=== PATIENT | female | born 1980 | race Caucasian/White ===

== ENCOUNTER 2017-03-01 13:14 | Emergency (ER) | payer OTHER ==
[2017-03-01 13:52] VITALS: BP 131/67; PULSE 82
--- NOTE | 2017-03-01 13:53 | PD ---
HPI Date Seen: Mar 01, 2017 Time Seen: 13:52 (Susan Abraham MD R1) Travel History International Travel<30 Days: No Contact w/Intl Traveler<30Days: No Known Affected Area: No (Susan Abraham MD R1) History of Present Illness HPI Patient is a 36 year old at 24 and 2/7 weeks gestation by, AMADO 06/19, who presents to the OB ED with upper abdominal pain and headache. She had blurry vision when she woke up this morning which resolved after 2 minutes, associated with finger tingling. She denies leakage of fluid, vaginal bleeding, and contractions. She feels baby moving regularly. She denies MG/N/V/D/fever/sick contacts/SOB/calf pain/dizziness/seeing spots. OB care is with Monalisa Puckett , and carousel operator who practices in [place]. The patient lives in [place] but works at a [employer] in [place]; she travels by car every day. She had [employer] for dinner last night. Para: 0 : 1 (Susan Abraham MD R1) History Past Medical History Narrative Medical Scoliosisstatus post spinal fusion 1987 Gallstones - cholecystectomy September 2015 Medical History: Denies Significant Hx (Susan Abraham MD R1) Obstetric History Obstetric History G1: Current , treated for multiple yeast infections in first trimester Normal first trimester one-hour GTT per patient report HEAD OF BIOLOGY history: Reports having had 2 colposcopies and a LEEP procedure in her early 20s due to abnormal Pap, reportedly normal Pap tests since (Susan Abraham MD R1) Past Surgical History Narrative Surgical Spinal fusion 1987 Cholecystectomy 2015 Colposcopy 2 LEEP Surgical History: No Previous Surgery (Susan Abraham MD R1) Family History Narrative Family History Mother with hypertension Family History: Negative (Susan Abraham MD) Social History Alcohol Use: Yes (first trimester exposure x 09/24/19) Tobacco Use: No Substance Abuse: No (Susan Abraham MD R1) Allergies-Medications (Allergen,Severity, Reaction): Coded Allergies: Codeine (Verified Allergy, Unknown, Psychosis, 03/01/17) Comments Allergy to codeine - patient states she "went crazy"postoperatively after taking it (Susan Abraham MD R1) Narrative Medication PNV Tylenol when necessary (Susna Abraham MD R1) Review of Systems Except as stated in HPI: all other systems reviewed are Neg (Susan Abraham MD R1) Physical Exam Narrative GENERAL: Well-nourished, well-developed female in no apparent distress SKIN: Warm and dry. No rashes, bruises, or lesions HEAD: Normocephalic and atraumatic. EYES: No scleral icterus. No injection or drainage. ENT: No nasal drainage noted. Mucous membranes pink. Airway patent. The tongue is normal in size, lacking erythema or nodules. Throat is patent. NECK: Supple, trachea midline. No JVD. CARDIOVASCULAR: Regular rate and rhythm without murmurs, gallops, or rubs. RESPIRATORY: Breath sounds equal bilaterally. No accessory muscle use. ABDOMEN/GI: Abdomen soft, obese, epigastric tenderness mild, bowel sounds present, no rebound, no guarding GENITOURINARY: External Genitalia: intact and normal in appearance Cervix: Deferred Membranes: No evidence of rupture Uterine Contractions: Absent Urine on visual inspection is dark FHT's: Category:1 Baseline: 150 Reactive: y to 160 Variability: mod Decels: absent EXTREMITIES: No cyanosis or edema. BACK: Nontender without obvious deformity. No CVA tenderness. NEUROLOGICAL: Awake and alert. Motor and sensory grossly within normal limits. Five out of 5 muscle strength in all muscle groups. Normal speech. (Susan Abraham MD R1) Vital Signs Date Time Temp Pulse Resp B/P Pulse Ox O2 Delivery O2 Flow Rate FiO2 03/01/17 14:46 81 129/72 03/01/17 14:31 79 133/66 03/01/17 14:19 74 127/68 03/01/17 13:52 82 131/67 Narrative NAD ABd soft NTND. epigastric region where burning was earlier Normal LE, trace edema, NT. +1 to+2 DTR, no clonus. (Marilee Ferris MD) Data Data Vital Signs Reviewed: Yes (serial BPs: 127/73, 131/67, 127/68, 133/68. Serial pulse: 91, 82, 74, 79) (Susan Abraham MD R1) Vital Signs Reviewed: Yes (Marilee Ferris MD) MDM Medical Record Reviewed: Yes Narrative Course / MDM 36 year old who presents with abdominal pain and headache, now improved Intrauterine : Category 1 tracing No contractions on monitor Headache, Abdominal pain: Exam is unremarkable Vital signs within normal limits on serial monitoring Tylenol by mouth 1 Patient possibly has dehydration and GERD Symptoms have improved Patient is instructed to follow-up with her OB provider in the next 1-[address] Ferris (Susan Abraham MD R1) Interpretation(s) Urine dark - c/w dehydration Attending Attestation 36 yo @ 24w2d with care in [place]. Patient presented with reports of a GM yesterday which resolved with Tylenol. Mild MG at this time. She had a "moment" of dizziness this am for 1-2 min which resolved. Earlier today on her way to work she noted some epigastric "burning" which resolved and wanted to get checked out. She has not hx of HTN. Uncomplicated . Serial BPs normal. Normal exam No s/s pre-eclampsia Tylenol given and oral fluids. TUMS for reflux/GERD Increase oral fluids f/u with her Leaflet Or Newspaper Deliverer tomorrow. Patient agrees with plan of care. (Marilee Ferris MD) Diagnosis Diagnosis: Primary Impression: with 24 completed weeks gestation Additional Impressions: Headache Dehydration Heartburn during in second trimester Disposition: 01 DISCHARGE HOME Condition: Stable Patient Instructions: Abdominal Pain in (ED), Early Labor Signs (ED) , General Instructions Susan Abraham MD R1 Mar 01, 2017 13:53 Marilee Ferris MD Mar 01, 2017 15:38 Decels: [-] EXTREMITIES: No cyanosis or edema. BACK: Nontender without obvious deformity. No CVA tenderness. NEUROLOGICAL: Awake and alert. Motor and sensory grossly within normal limits. Five out of 5 muscle strength in all muscle groups. Normal speech. MDM Medical Record Reviewed: Yes Narrative Course / MDM 36 year old who presents for labor check Category 1 tracing Susan Abraham MD R1 Mar 01, 2017 13:53 Susan Abraham MD R1 Mar 01, 2017 13:53
[2017-03-01 14:19] VITALS: BP 127/68; PULSE 74
[2017-03-01 14:31] VITALS: BP 133/66; PULSE 79
[2017-03-01 14:46] VITALS: BP 129/72; PULSE 81
[2017-03-01] MEDS ORDERED: ACETAMINOPHEN 325 MG TAB PO ONE (15:00)
== END 2017-03-01 15:31 | disposition home or self-care (01) ==
LOC: HOBED 13:14
DX: O26.892 Other specified pregnancy related conditions, second trimester (principal); O09.512 Supervision of elderly primigravida, second trimester; E86.0 Dehydration; R51 Headache; R12 Heartburn; Z3A.24 24 weeks gestation of pregnancy
CPT/HCPCS: 99283